=== PATIENT | female | born 1945 | race Caucasian/White ===

== ENCOUNTER 2017-02-12 15:23 | Emergency (ER) | payer MEDICARE, OTHER ==
[2017-02-12 15:32] VITALS: BP 108/60
[2017-02-15 18:18] LABS: HS/VZ Source ABDOMEN; Varicella Zoster Result Negative (Negative); Varicella Zoster Source ADBOMEN
--- NOTE | 2017-02-16 10:12 | UC ---
Progress - Progress Note Progress Note: neg HSV 1 and 2 neg VZV no change 02/16/2017 10:12 cynthia
--- NOTE | 2017-03-01 15:28 | UC ---
Skin Complaint HPI - HPI Summary HPI Summary: had shingles 4 weeks ago now has rash on right side of abdomen - History of Current Complaint Chief Complaint: UCSkin Time Seen by Provider: 02/12/17 16:15 Stated Complaint: RASH Hx Obtained From: Patient ?: No Onset/Duration: Sudden Onset Timing: Constant Onset Severity: Mild Current Severity: Mild Pain Intensity: 0 Pain Scale Used: 0-10 Numeric Location: Discrete Character: Pruritus, Redness, Raised Aggravating Factor(s): Nothing Alleviating Factor(s): Nothing Associated Signs & Symptoms: Positive: Negative - Allergy/Home Medications Allergies/Adverse Reactions: Allergies Allergy/AdvReac Type Severity Reaction Status Date / Time Penicillins Allergy Unknown Unknown Verified 06/28/13 11:59 Reaction Details Review of Systems Constitutional: Negative Skin: Rash Eyes: Negative ENT: Negative Respiratory: Negative Cardiovascular: Negative Gastrointestinal: Negative Genitourinary: Negative Motor: Negative Neurovascular: Negative Musculoskeletal: Negative Neurological: Negative Psychological: Negative Is Patient Immunocompromised?: No All Other Systems Reviewed And Are Negative: Yes PMH/Surg Hx/FS Hx/Imm Hx Previously Healthy: No Endocrine History: Hypothyroidism Psychological History: Anxiety - Surgical History Surgical History: Yes Surgery Procedure, Year, and Place: Ext of wisdom teeth 1959. FNA breast- Benign. Right thumb arthroplasty. VIRIDIANA/BSO 1993. Fx PIP right ring finger - Family History Known Family History: Positive: None - Social History Occupation: Retired Lives: With Family Alcohol Use: Occasionally Substance Use Type: None, Prescribed Smoking Status (MU): Never Smoked Tobacco Physical Exam Triage Information Reviewed: Yes Appearance: Well-Appearing, No Pain Distress, Well-Nourished Vital Signs: Initial Vital Signs Temp 97.3 F 02/12/17 15:29 Pulse 71 02/12/17 15:29 Resp 18 02/12/17 15:29 BP 108/60 02/12/17 15:29 Pulse Ox 100 02/12/17 15:29 Vital Signs Reviewed: Yes Eye Exam: Normal Eyes: Positive: Conjunctiva Clear ENT Exam: Normal ENT: Positive: Normal ENT inspection, Hearing grossly normal. Negative: Tonsillar swelling, Tonsillar exudate, Trismus, Muffled voice, Hoarse voice Dental Exam: Normal Neck exam: Normal Neck: Positive: Supple, No Lymphadenopathy Respiratory Exam: Normal Respiratory: Positive: Chest non-tender, No respiratory distress, No accessory muscle use Cardiovascular Exam: Normal Cardiovascular: Positive: RRR, Pulses Normal, Brisk Capillary Refill Musculoskeletal Exam: Normal Musculoskeletal: Positive: Strength Intact, ROM Intact, No Edema Neurological Exam: Normal Neurological: Positive: Alert, Muscle Tone Normal Psychological Exam: Normal Skin Exam: Other Skin: Positive: rashes - raised red rash on right side of abdomen Course/Dx - Course Course Of Treatment: start acyclovir, swab lesion for viral culture follow with pcp - Diagnoses Provider Diagnoses: Shingles Discharge - Discharge Plan Condition: Stable Disposition: HOME Prescriptions: Acyclovir* [Zovirax 400 MG TAB*] 800 mg PO SEE INSTRUCTIONS #70 tab Patient Education Materials: Shingles (ED) Referrals: Payton Monroy MD [Primary Care Provider] - 1 Week
== END 2017-02-12 16:32 | disposition home or self-care (01) ==
LOC: UCEAST 15:23
DX: B02.9 Zoster without complications (principal); E03.9 Hypothyroidism, unspecified; F41.9 Anxiety disorder, unspecified; Z88.0 Allergy status to penicillin
CPT/HCPCS: 87529; 87798; 99212; G0463

== ENCOUNTER 2018-03-29 09:29 | Day surgery (SDC) | payer MEDICARE ==
[~2018-03-29 09:29] MED LIST: Acetaminophen TAB* 325 MG PO PRN; Buffered Lidocaine 0.9% SYRIN* 5 ML/SYR SYRINGE INTRADERM ONE
[2018-03-29] MEDS ORDERED: Proparacaine 0.5% OPHTH.SOL* 15 ML BTL ONE (10:15)
[2018-03-29] MEDS ORDERED: Ketorolac 0.5% OPHTH (NF) 0.5 % 5 ML BTL ONE (10:15)
[2018-03-29] MEDS ORDERED: Lidocaine 2% EPI 1:200000 MPF*10-20 ML VIAL ONE (10:15)
[2018-03-29] MEDS ORDERED: Povidone Iodine 5% OPTH* 30 ML BTL ONE (10:15)
[2018-03-29] MEDS ORDERED: acetaZOLAMIDE TAB* 250 MG ONE (10:15)
[2018-03-29] MEDS ORDERED: Neomycin/Polymy/Dex OPTH.SUSP* MAXITROL 0.1% 5 ML ONE (10:15)
[2018-03-29] MEDS ORDERED: Lidocaine 1%* 5 ML VIAL ONE (10:15)
[2018-03-29] MEDS ORDERED: Cyclopentolate 1% OPTH.SOL* 2 ML BTL ONE (10:15)
[2018-03-29] MEDS ORDERED: Midazolam* 1 MG/ML 2 ML VIAL (2 MG) ONE (11:10)
[2018-03-29 12:17] VITALS: BP 112/68
--- NOTE | 2018-03-29 20:01 | OP ---
DATE OF OPERATION: 03/29/18 [facility] DATE OF : 43 SURGEON: Mohit Al M.D. PRE-OP DIAGNOSES: Cataract and glaucoma, right eye. POST-OP DIAGNOSES: Cataract and glaucoma, right eye. OPERATIVE PROCEDURE: Extracapsular cataract extraction with intraocular lens implant right eye. DESCRIPTION OF PROCEDURE: The patient was brought to the operating room after being given 1/2% Alcaine with epinephrine drops in the preoperative area. The eye was prepped and draped in the usual sterile fashion. Sterile drape and eyelid speculum were placed. Again, topical 1/2% Alcaine with epinephrine was given. A paracentesis incision was made at the 9 o'clock position with the No.75 blade. Clear cornea incision 2.2 x 2.2-mm was created at the 12 o'clock position starting at the anterior limbus using the 2.2-mm keratome. The anterior chamber was irrigated with 0.4 mL of 1% non-preservative intracameral lidocaine and filled with DisCoVisc. A capsulorrhexis was completed using the cystotome and the Utrata forceps. Hydrodissection was performed with balanced salt solution. The lens nucleus was removed with the Phacoemulsification handpiece without incident. Cortex was removed with the irrigation-aspiration handpiece. The capsular bag was re-inflated using DisCoVisc and an [id number] 19.5 implant was inserted with the shooter followed by an iStent [id number] inserted with its shooter. The irrigation-aspiration handpiece was used to remove all residual DisCoVisc. The eye was refilled with balanced salt solution and the wound checked and found to be watertight. Topical Maxitrol drops were given. [id number]/[facility] #: [id number] [facility]
== END 2018-03-29 12:20 | disposition home or self-care (01) ==
LOC: OREAST 09:29
PROVIDERS: ATTEND Specialist
DX: H25.811 Combined forms of age-related cataract, right eye (principal); H40.1132 Primary open-angle glaucoma, bilateral, moderate stage; E03.9 Hypothyroidism, unspecified; F41.8 Other specified anxiety disorders; G47.33 Obstructive sleep apnea (adult) (pediatric)
CPT/HCPCS: A9270-GY; C1783; J2250; V2632

== ENCOUNTER 2018-04-05 07:32 | Day surgery (SDC) | payer MEDICARE ==
[~2018-04-05 07:32] MED LIST changes: -Acetaminophen TAB* 325 MG PO PRN; -Buffered Lidocaine 0.9% SYRIN* 5 ML/SYR SYRINGE INTRADERM ONE; +Buffered Lidocaine 1% SYRIN* 1 ML/SYRINGE INTRADERM ONE
[2018-04-05] MEDS ORDERED: Midazolam* 1 MG/ML 2 ML VIAL (2 MG) ONE (08:53)
[2018-04-05] MEDS ORDERED: Propofol* 10 MG/ML 20 ML BTL ONE (09:06)
[2018-04-05] MEDS ORDERED: Lidocaine 2% PF * 5 ML VIAL ONE (09:06)
[2018-04-05 09:33] VITALS: BP 93/47
--- NOTE | 2018-04-05 12:27 | OP ---
DATE OF OPERATION: 04/05/2018. DATE OF : 1945. SURGEON: Mohit Al M.D. PREOPERATIVE DIAGNOSIS: Cataract left eye. POSTOPERATIVE DIAGNOSIS: Cataract left eye. OPERATIVE PROCEDURE: Extracapsular cataract extraction with intraocular lens implant left eye. PROCEDURE: The patient was brought to the operating room after being given 1/2% Alcaine with epineph rine drops in the preoperative area. The eye was prepped and draped in the usual sterile fashion. S terile drape and eyelid speculum were placed. Again, topical 1/2% Alcaine with epinephrine was given . A paracentesis incision was made at the 3 o'clock position with the No.75 blade. Clear cornea inc ision 2.2 x 2.2-mm was created at the 6 o'clock position starting at the anterior limbus using the 2. 2-mm keratome. The anterior chamber was irrigated with 0.4 mL of 1% non-preservative intracameral li docaine and filled with DisCoVisc. A capsulorrhexis was completed using the cystotome and the Utrata forceps. Hydrodissection was performed with balanced salt solution. The lens nucleus was removed wi th the Phacoemulsification handpiece without incident. Cortex was removed with the irrigation-aspira tion handpiece. The capsular bag was re-inflated using DisCoVisc and an [id number] 19 implant was insert ed with the shooter, followed by an iStent [id number] inserted with its shooter into the trabecular mesh work at the 9 o'clock position. The irrigation-aspiration handpiece was used to remove all residual DisCoVisc. The eye was refilled with balanced salt solution and the wound checked and found to be wa tertight. Topical Maxitrol drops were given. [id number]/[facility] #: [id number]
[2018-04-05] MEDS ORDERED: acetaZOLAMIDE TAB* 250 MG ONE (15:44)
[2018-04-05] MEDS ORDERED: Cyclopentolate 1% OPTH.SOL* 2 ML BTL ONE (15:44)
[2018-04-05] MEDS ORDERED: Lidocaine 1%* 5 ML VIAL ONE (15:45)
[2018-04-05] MEDS ORDERED: Ketorolac 0.5% OPHTH (NF) 0.5 % 5 ML BTL ONE (15:45)
[2018-04-05] MEDS ORDERED: Phenylephrine 2.5% OPTH.SOL* 2 ML BTL ONE (15:45)
[2018-04-05] MEDS ORDERED: Neomycin/Polymy/Dex OPTH.SUSP* MAXITROL 0.1% 5 ML ONE (15:45)
[2018-04-05] MEDS ORDERED: Lidocaine 2% EPI 1:200000 MPF*10-20 ML VIAL ONE (15:45)
[2018-04-05] MEDS ORDERED: Proparacaine 0.5% OPHTH.SOL* 15 ML BTL ONE (15:45)
[2018-04-05] MEDS ORDERED: Povidone Iodine 5% OPTH* 30 ML BTL ONE (15:45)
== END 2018-04-05 09:40 | disposition home or self-care (01) ==
LOC: OREAST 07:32
PROVIDERS: ATTEND Specialist
DX: H25.812 Combined forms of age-related cataract, left eye (principal); H40.1132 Primary open-angle glaucoma, bilateral, moderate stage; E03.9 Hypothyroidism, unspecified; G47.33 Obstructive sleep apnea (adult) (pediatric); F41.8 Other specified anxiety disorders
CPT/HCPCS: A9270-GY; C1783; J2250; J2704; V2632